=== PATIENT | male | born 1970 | race Caucasian/White ===

== ENCOUNTER 2023-04-14 18:33 | Emergency (ER) | payer MEDICARE, OTHER ==
[~2023-04-14] VITALS: Ht 182.9 cm; Wt 79.4 kg
[2023-04-14] MEDS ORDERED: PANTOPRAZOLE SO20 MG PO (18:43)
[2023-04-14] MEDS ORDERED: FLECAINIDE ACET50 MG PO (18:43)
[2023-04-14] MEDS ORDERED: METOPROLOL TART25 MG PO (18:44)
[2023-04-14] MEDS ORDERED: CYMBALTA30 MG PO (18:44)
[2023-04-14 18:49] LABS: BASOPHILS 1.3 % (0-2); EOSINOPHILS 1.7 % (0-6); HEMATOCRIT 36.2 % (35.0-50.0); HEMOGLOBIN 11.5 g/dL (12.0-18.0); LYMPHOCYTES 40.2 % (24-44); MCH 22.4 (27-36); MCHC 31.9 g/dl (30-36); MCV 70.2 fl (81-99); MONOCYTES 9.5 % (0-12); NEUTROPHILS 47.3 % (39-80); PLATELET COUNT 331 K/uL (140-440); RBC 5.15 M/ul (4.3-5.7); RDW 15.7 (10.5-15.0)
[2023-04-14 19:04] LABS: ALBUMIN 3.3 g/dL (3.4-5.0); ALBUMIN/GLOBULIN RATIO 0.89 (1.1-2.4); ALKALINE PHOSPHATASE 67 U/L (46-116); ALT (SGPT) 28 U/L (14-59); AST (SGOT) 17 U/L (15-37); BILIRUBIN, TOTAL 0.3 ng/dL (0.2-1.0); BUN/CREATININE RATIO 18.75 (6.0-28.6); CALCIUM 8.8 mg/dL (8.5-10.1); CARBON DIOXIDE 26 mmol/L (21-32); CHLORIDE 102 mmol/L (98-107); CREATININE, SERUM 1.12 mg/dL (0.70-1.30); GLOMERULAR FILTRATION RATE,EST 78 mL/min (>60); MAGNESIUM 1.9 mg/dL (1.8-2.4); UREA NITROGEN 21 mg/dL (7-18)
[2023-04-14 20:06] VITALS: BP 124/83
--- NOTE | 2023-04-14 21:05 | EKG ---
[facility] [address] [facility] [place] [address] Signed Sinus rhythm with premature atrial complexes with aberrant conduction Otherwise normal ECG No previous ECGs available Confirmed by Odette Aguillon MD () on 04/14/2023 9:05:37 PM Electronically Signed By: ODETTE AGUILLON MD 04/14/232104 PATIENT NAME: OCTAVIANO RUIZ Electrocardiogram DATE OF : 66 PHYSICIAN: ODETTE AGUILLON MD REPORT #: [id number] REPORT IS CONFIDENTIAL AND NOT TO BE RELEASED WITHOUT AUTHORIZATION
== END 2023-04-14 20:04 | disposition home or self-care (01) ==
LOC: ED 18:33
PROVIDERS: Emergency Medicine
DX: R07.89 Other chest pain (principal); Z79.899 Other long term (current) drug therapy
CPT/HCPCS: 36415; 71045; 80053; 83735; 84484; 85025; 93005; 93010; 99285-25

== ENCOUNTER 2024-04-26 01:53 | Emergency (ER) | payer MEDICARE, OTHER ==
[~2024-04-26] VITALS: Ht 175.3 cm; Wt 79.8 kg
[~2024-04-26 01:53] MED LIST: CYMBALTA30 MG PO; FLECAINIDE ACET50 MG PO; METOPROLOL TART25 MG PO; PANTOPRAZOLE SO20 MG PO
[2024-04-26] MEDS ORDERED: ondansetron HCL 4 MG/2 ML VIAL IV ONE (02:30)
[2024-04-26] MEDS ORDERED: KETOROLAC TROMETHAMINE 30 MG/ML VIAL IV ONE (02:30)
[2024-04-26] MEDS ORDERED: SODIUM CHLORIDE 0.9% 1,000 ML IV SCH (02:30)
[2024-04-26 02:35] LABS: BASOPHILS 0.1 % (0-2); EOSINOPHILS 0.8 % (0-6); HEMATOCRIT 39.4 % (35.0-50.0); HEMOGLOBIN 12.9 g/dL (12.0-18.0); LYMPHOCYTES 4.9 % (24-44); MCH 22.7 (27-36); MCHC 32.7 g/dl (30-36); MCV 69.3 fl (81-99); NEUTROPHILS 90.2 % (39-80); PLATELET COUNT 344 K/uL (140-440); RBC 5.68 M/ul (4.3-5.7); RDW 14.9 (10.5-15.0)
[2024-04-26 02:46] LABS: SMEAR REVIEW BLOOD SEE COMMENTS
[2024-04-26 02:49] LABS: ALBUMIN 3.3 g/dL (3.4-5.0); ALBUMIN/GLOBULIN RATIO 0.85 (1.1-2.4); ANION GAP 14.2 (7-21); BILIRUBIN, TOTAL 0.8 ng/dL (0.2-1.0); BUN/CREATININE RATIO 18.51 (6.0-28.6); CALCIUM 8.5 mg/dL (8.5-10.1); CREATININE, SERUM 1.08 mg/dL (0.70-1.30); POTASSIUM 4.2 mmol/L (3.5-5.1); PROTEIN, TOTAL 7.2 g/dL (6.4-8.2)
[2024-04-26 04:59] LABS: BILIRUBIN, URINE NEGATIVE (negative); BLOOD/HGB, URINE NEGATIVE (Negative); KETONE, URINE NEGATIVE (Negative); LEUK ESTERASE, URINE NEGATIVE (negative); NITRITE, URINE NEGATIVE (negative)
[2024-04-26] MEDS ORDERED: LIDOCAINE & ANTACID 35 ML BTL PO ONE (05:00)
[2024-04-26] MEDS ORDERED: ONDANSETRON 4 MG HOME.PACK SL ONE (05:15)
[2024-04-26 05:23] VITALS: BP 108/72
== END 2024-04-26 05:24 | disposition home or self-care (01) ==
LOC: ED 01:53
PROVIDERS: Emergency Medicine
DX: R10.9 Unspecified abdominal pain (principal); I48.91 Unspecified atrial fibrillation; Z79.899 Other long term (current) drug therapy
CPT/HCPCS: 36415; 74177; 80053; 81003; 83690; 85025; 85060; 96361; 96375; 99284-25; A9270; J1885; J2405; J7030